=== PATIENT | female | born 1990 | race African-American/Black ===

== ENCOUNTER → 2018-02-13 | Outpatient (CLI) | payer OTHER ==
[2018-02-13 07:46] LABS: HCG, SERUM QUANTITATIVE 59 MIU/ML
== END ==
LOC: M LAB 07:04
DX: Z32.01 Encounter for pregnancy test, result positive (principal)
CPT/HCPCS: 84702

== ENCOUNTER → 2018-02-16 | Outpatient (CLI) | payer OTHER ==
[2018-02-16 13:16] LABS: HCG, SERUM QUANTITATIVE 212 MIU/ML
== END ==
LOC: M LAB 11:55
DX: Z32.01 Encounter for pregnancy test, result positive (principal); Z3A.00 Weeks of gestation of pregnancy not specified
CPT/HCPCS: 84443

== ENCOUNTER 2018-03-13 12:22 | Day surgery (SDC) | payer OTHER ==
[2018-03-13 12:52] LABS: MEAN CORPUSCULAR HEMOGLOBIN 27.7 pg (27.0-33.0); MEAN CORPUSCULAR HGB CONC 32.6 g/dl (32.0-36.5); MEAN CORPUSCULAR VOLUME 85.1 fl (80.0-96.0); PLATELET COUNT, AUTOMATED 280 10^3/uL (150-450); RED BLOOD COUNT 5.05 10^6/uL (4.00-5.40); RED CELL DISTRIBUTION WIDTH 13.7 % (11.5-14.5); WHITE BLOOD COUNT 5.7 10^3/uL (4.0-10.0)
[2018-03-13] MEDS ORDERED: ceFAZolin 1GM INJ (J0690 PER 500MG) As Ordered (13:08)
[2018-03-13 13:23] LABS: ANION GAP 7 MEQ/L (8-16); BLOOD UREA NITROGEN 12 MG/DL (7-18); CALCIUM LEVEL 8.7 MG/DL (8.5-10.1); CARBON DIOXIDE LEVEL 24 MEQ/L (21-32); CHLORIDE LEVEL 107 MEQ/L (98-107); CREATININE FOR GFR 1.01 MG/DL (0.55-1.30); GLOMERULAR FILTRATION RATE > 60.0 (>60); GLUCOSE, FASTING 89 MG/DL (70-100); HCG, SERUM QUANTITATIVE 2442 MIU/ML; POTASSIUM SERUM 4.6 MEQ/L (3.5-5.1); SODIUM LEVEL 138 MEQ/L (136-145)
[2018-03-13] MEDS ORDERED: SODIUM CHLORIDE 0.9% 1000 ML IV (14:00)
[2018-03-13] MEDS ORDERED: ACETAMINOPHEN 325 MG TAB As Ordered (14:34)
[2018-03-13] MEDS: ACETAMINOPHEN TAB 650MG DOSE (2X325MG) PO (14:40)
[2018-03-13] MEDS ORDERED: LR 1,000 ML IV ×2 (14:45→15:45)
[2018-03-13] MEDS: ceFAZolin SOD 1 GM in D5W MINI-BAG PLUS 50 ML IV (14:50)
[2018-03-13] MEDS ORDERED: PROPOFOL 200 MG/20 ML VIAL As Ordered (14:55)
[2018-03-13] MEDS ORDERED: LIDOCAINE 2% INJ 100 MG/5 ML SDV (FOR ANES.) As Ordered (14:55)
[2018-03-13] MEDS ORDERED: fentaNYL 100 MCG/2 ML INJECTION (J3010) As Ordered (14:55)
[2018-03-13] MEDS ORDERED: MIDAZOLAM INJ 2 MG/2 ML VIAL (J2250) As Ordered (14:55)
[2018-03-13] MEDS ORDERED: dexameTHASONE 4 MG/ML 1ML VIAL (J1100) As Ordered ×2 (14:56)
[2018-03-13] MEDS: ACETAMINOPHEN 650 MG SUPP As Ordered (14:57)
[2018-03-13] MEDS ORDERED: NS 1,000 ML IV (15:00)
[2018-03-13] MEDS ORDERED: ONDANSETRON 4MG/2ML VIAL (J2405) As Ordered (15:02)
[2018-03-13] MEDS ORDERED: KETOROLAC 60 MG/2 ML VIAL (J1885) As Ordered (15:02)
[2018-03-13] MEDS ORDERED: fentaNYL 100 MCG/2 ML INJECTION (J3010) IV (15:45)
[2018-03-13] MEDS ORDERED: METOCLOPRAMIDE INJ 10MG/2ML VIAL (J2765) IV (15:45)
[2018-03-13] MEDS ORDERED: ONDANSETRON 4MG/2ML VIAL (J2405) IV (15:45)
[2018-03-13] MEDS ORDERED: KETOROLAC 30 MG/ML VIAL (J1885) IV (21:00)
== END 2018-03-13 17:07 | disposition home or self-care (01) ==
LOC: M SDC 17:07
DX: O02.1 Missed abortion (principal)
CPT/HCPCS: 59820

== ENCOUNTER 2018-03-18 16:30 | Day surgery (SDC) | payer OTHER ==
[2018-03-18] MEDS: MORPHINE 4 MG/ML 1ML VIAL/SYRINGE (J2270) IV ×3 (17:05→20:09)
[2018-03-18] MEDS: ONDANSETRON 4MG/2ML VIAL (J2405) IV (17:05)
[2018-03-18] MEDS: NS 1,000 ML IV (17:06)
[2018-03-18 17:22] LABS: BASO # 0.1 10^3/uL (0.0-0.2); BASO % 0.8 % (0.0-1.0); EOS # 0.7 10^3/uL (0.0-0.50); EOS % 9.1 % (0.0-3.0); HEMATOCRIT 42.8 % (36.0-47.0); HEMOGLOBIN 14.2 g/dl (12.0-15.5); IMMATURE GRANULOCYTE % 0.3 % (0-3.0); LYMPH # 2.8 10^3/uL (1.5-6.5); LYMPH % 39.4 % (24.0-44.0); MEAN CORPUSCULAR HEMOGLOBIN 27.7 pg (27.0-33.0); MEAN CORPUSCULAR HGB CONC 33.2 g/dl (32.0-36.5); MEAN CORPUSCULAR VOLUME 83.4 fl (80.0-96.0); MONO # 0.4 10^3/uL (0.0-0.8); MONO % 5.3 % (0.0-5.0); NEUTROPHILS # 3.2 10^3/uL (1.8-7.7); NEUTROPHILS % 45.1 % (36.0-66.0); PLATELET COUNT, AUTOMATED 303 10^3/uL (150-450); RED BLOOD COUNT 5.13 10^6/uL (4.00-5.40); WHITE BLOOD COUNT 7.1 10^3/uL (4.0-10.0)
[2018-03-18 17:30] LABS: CONTROL LINE HCG INT CTR LINE PRESENT; HCG, SERUM QUALITATIVE POSITIVE (NEGATIVE)
[2018-03-18 17:38] LABS: INR 1.07; PROTHROMBIN TIME 14.1 SECONDS (12.1-14.4)
[2018-03-18 17:39] LABS: LACTIC ACID SEPSIS PROTOCOL 1.6 MMOL/L (0.4-2.0)
[2018-03-18 17:39] LABS: PARTIAL THROMBOPLASTIN TIME 27.9 SECONDS (25.4-37.6)
[2018-03-18 17:42] LABS: ALBUMIN 3.5 GM/DL (3.2-5.2); ALBUMIN/GLOBULIN RATIO 0.78 (1.00-1.93); ALKALINE PHOSPHATASE 71 U/L (45-117); ALT/SGPT 18 U/L (12-78); ANION GAP 10 MEQ/L (8-16); AST/SGOT 13 U/L (7-37); BILIRUBIN,DIRECT 0.1 MG/DL (0.0-0.2); BILIRUBIN,TOTAL 0.2 MG/DL (0.2-1.0); BLOOD UREA NITROGEN 11 MG/DL (7-18); CALCIUM LEVEL 9.5 MG/DL (8.5-10.1); CARBON DIOXIDE LEVEL 25 MEQ/L (21-32); CHLORIDE LEVEL 104 MEQ/L (98-107); CREATININE FOR GFR 0.91 MG/DL (0.55-1.30); GLOMERULAR FILTRATION RATE > 60.0 (>60); GLUCOSE, FASTING 94 MG/DL (70-100); LIPASE 82 U/L (73-393); SODIUM LEVEL 139 MEQ/L (136-145)
[2018-03-18 17:56] LABS: HCG, SERUM QUANTITATIVE 126 MIU/ML
[2018-03-18] MEDS ORDERED: MORPHINE 4 MG/ML 1ML VIAL/SYRINGE (J2270) As Ordered (20:04)
[2018-03-18] MEDS: DOXYCYCLINE HYCLATE 100 MG TAB PO (20:40)
[2018-03-18] MEDS ORDERED: DOXYCYCLINE HYCLATE 100 MG TAB As Ordered (20:47)
[2018-03-18] MEDS: LR 1,000 ML IV (20:57)
[2018-03-18] MEDS ORDERED: LIDOCAINE 1% MDV 20ML VIAL As Ordered (21:04)
[2018-03-18 21:20] LABS: KETONE, URINE AUTO RFX NEGATIVE (NEGATIVE); NITRITE, URINE AUTO RFX NEGATIVE (NEGATIVE); RBC, URINE AUTO RFX 97 /HPF (0-3); SPECIFIC GRAVITY UR AUTO RFX 1.005 (1.002-1.035); SQUAM EPITHELIAL CELL UR AURFX 1 /HPF (0-6); WBC, URINE AUTO RFX 2 /HPF (0-3)
[2018-03-18 21:37] LABS: LEUKOCYTE ESTERASE UR AUTO RFX TRACE (NEGATIVE)
[2018-03-18] MEDS ORDERED: fentaNYL 100 MCG/2 ML INJECTION (J3010) As Ordered (22:31)
[2018-03-18] MEDS ORDERED: dexameTHASONE 4 MG/ML 1ML VIAL (J1100) As Ordered (22:31)
[2018-03-18] MEDS ORDERED: LIDOCAINE 2% INJ 100 MG/5 ML SDV (FOR ANES.) As Ordered (22:31)
[2018-03-18] MEDS ORDERED: MIDAZOLAM INJ 2 MG/2 ML VIAL (J2250) As Ordered (22:31)
[2018-03-18] MEDS ORDERED: ONDANSETRON 4MG/2ML VIAL (J2405) As Ordered (22:31)
[2018-03-18] MEDS ORDERED: KETOROLAC 60 MG/2 ML VIAL (J1885) As Ordered (22:31)
[2018-03-18] MEDS ORDERED: PROPOFOL 200 MG/20 ML VIAL As Ordered (22:31)
[2018-03-18] MEDS: SILVER NITRATE APPLICATOR As Ordered (22:51)
== END 2018-03-18 23:59 | disposition home or self-care (01) ==
LOC: M SDC 23:59 → M ED 16:30 → M SDC 19:22
DX: O73.1 Retained portions of placenta and membranes, without hemorrhage (principal)
CPT/HCPCS: 59820

== ENCOUNTER 2018-08-16 20:27 | Emergency (ER) | payer OTHER ==
[~2018-08-16] VITALS: Ht 175.3 cm; Wt 68.2 kg
[~2018-08-16 20:27] MED LIST: ACET30TAB PO; ACETAMINOPHEN-COD PO
[2018-08-16] MEDS ORDERED: PROPARACAINE 0.5% OPHTH SOL 15ML As Ordered ONE (20:42)
[2018-08-16] MEDS ORDERED: FLUORESCEIN OPHTH 1 MG STRIP As Ordered ONE (20:42)
[2018-08-16] MEDS ORDERED: TETRACAINE 0.5% OPHTH SOLN 4ML OU ONE (21:15)
[2018-08-16] MEDS ORDERED: FLUORESCEIN OPHTH 1 MG STRIP OU ONE (21:15)
[2018-08-16] MEDS ORDERED: CIPR0.3S OD (21:37)
[2018-08-16] MEDS ORDERED: [UNRECOGNIZED DRUG - CODE] OP (21:39)
[2018-08-16] MEDS ORDERED: CIPROFLOXACIN 0.3% OPHTH SOLN 2.5ML OD ONE (21:45)
[2018-08-16 21:46] VITALS: BP 122/68
== END 2018-08-16 22:55 | disposition home or self-care (01) ==
LOC: M ED 20:27
DX: S05.01XA Injury of conjunctiva and corneal abrasion without foreign body, right eye, initial encounter (principal); W22.8XXA Striking against or struck by other objects, initial encounter; Y92.838 Other recreation area as the place of occurrence of the external cause; Y93.23 Activity, snow (alpine) (downhill) skiing, snowboarding, sledding, tobogganing and snow tubing

== ENCOUNTER → 2018-12-23 | Outpatient (CLI) | payer OTHER ==
[~2018-12-23] MED LIST changes: +ACET-716 PO; -ACET30TAB PO; +CIPR0.3S OD; +[UNRECOGNIZED DRUG - CODE] OP
[2018-12-23 11:48] LABS: THYROID STIMULATING HORMONE 1.59 uIU/ML (0.358-3.740)
== END ==
LOC: M LAB 10:57
PROVIDERS: ATTEND Obstetrics & Gynecology Reproductive Endocrinology
DX: Z32.00 Encounter for pregnancy test, result unknown (principal)

== ENCOUNTER → 2018-12-25 | Outpatient (CLI) | payer OTHER ==
[2018-12-25 09:16] LABS: THYROID STIMULATING HORMONE 2.3 uIU/ML (0.358-3.740)
== END ==
LOC: M LAB 08:25
PROVIDERS: ATTEND Obstetrics & Gynecology Reproductive Endocrinology
DX: Z32.01 Encounter for pregnancy test, result positive (principal)

== ENCOUNTER 2019-01-19 10:52 | Emergency (ER) | payer OTHER ==
[~2019-01-19] VITALS: Ht 188 cm; Wt 68.2 kg
[2019-01-19 11:46] LABS: BASO # 0.1 10^3/uL (0.0-0.2); BASO % 1.3 % (0.0-1.0); EOS # 0.5 10^3/uL (0.0-0.50); EOS % 7.3 % (0.0-3.0); HEMATOCRIT 40.8 % (36.0-47.0); HEMOGLOBIN 13.3 g/dl (12.0-15.5); LYMPH # 2.1 10^3/uL (1.5-4.5); LYMPH % 33.9 % (24.0-44.0); MEAN CORPUSCULAR HEMOGLOBIN 27.5 pg (27.0-33.0); MEAN CORPUSCULAR HGB CONC 32.6 g/dl (32.0-36.5); MEAN CORPUSCULAR VOLUME 84.5 fl (80.0-96.0); MONO # 0.5 10^3/uL (0.0-0.8); MONO % 7.8 % (0.0-5.0); NEUTROPHILS % 49.7 % (36.0-66.0); PLATELET COUNT, AUTOMATED 262 10^3/uL (150-450); RED BLOOD COUNT 4.83 10^6/uL (4.00-5.40); WHITE BLOOD COUNT 6.1 10^3/uL (4.0-10.0)
--- NOTE | 2019-01-19 12:42 | REP ---
First trimester obstetric ultrasound for vaginal bleeding, stat request: The studies performed with transabdominal imaging. The bladder is adequately distended. There is an intrauterine gestational sac with a pole. The heart rate is 155 beats per minute. The pole crown-rump length is 1.5 cm. This corresponds to a gestational age of 7 weeks 6 days. The COREEN is 09/01/2019. Gestational age by LMP is 8 weeks 5 days/COREEN 08/26/2019. The there is a normal size yolk sac measuring up to 3 ml in diameter. There is a subchorionic hematoma measuring 2.1 x 1.7 x 2.2 cm. There is a subserosal fibroid in the anterior myometrium of the uterine fundus measuring 2.1 x 1.3 by the 1.9 cm. The adnexa and cul-de-sac are unremarkable. Impression: Viable 5-mvye-2-day intrauterine gestation. There is a subchorionic hematoma as described. There is a uterine fundal fibroid as described. Electronically Signed by Ye Frost MD 01/19/2019 12:33 P
[2019-01-19 12:48] LABS: BLOOD UREA NITROGEN 9 MG/DL (7-18); CARBON DIOXIDE LEVEL 27 MEQ/L (21-32); CHLORIDE LEVEL 106 MEQ/L (98-107); CREATININE FOR GFR 0.82 MG/DL (0.55-1.30); GLOMERULAR FILTRATION RATE > 60.0 (>60); GLUCOSE, FASTING 61 MG/DL (70-100); HCG, SERUM QUANTITATIVE 153690 MIU/ML; POTASSIUM SERUM 4.1 MEQ/L (3.5-5.1); SODIUM LEVEL 137 MEQ/L (136-145)
[2019-01-19 13:34] VITALS: BP 111/63
[2019-01-19] MEDS ORDERED: KEFL500C17 PO (13:39)
== END 2019-01-19 13:54 | disposition home or self-care (01) ==
LOC: M ED 10:52
DX: O20.8 Other hemorrhage in early pregnancy (principal); O34.10 Maternal care for benign tumor of corpus uteri, unspecified trimester; D25.2 Subserosal leiomyoma of uterus; R82.71 Bacteriuria; Z3A.01 Less than 8 weeks gestation of pregnancy

== ENCOUNTER 2019-05-13 09:24 | Outpatient (CLI) | payer OTHER ==
[~2019-05-13] VITALS: Ht 157.5 cm; Wt 79.6 kg
[~2019-05-13 09:24] MED LIST changes: +KEFL500C17 PO
[2019-05-13 09:43] VITALS: BP 119/59
[2019-05-13] MEDS ORDERED: APAP325T4 PO (09:50)
[2019-05-13] MEDS ORDERED: PRENTAB9 PO (09:50)
[2019-05-13] MEDS ORDERED: FIORICET TAB PO ONE (10:15)
[2019-05-13] MEDS ORDERED: ONDANSETRON 4MG/2ML VIAL (J2405) IV ONE (10:15)
[2019-05-13] MEDS ORDERED: LR 1,000 ML IV ONE (10:15)
[2019-05-13 10:59] LABS: APPEARANCE, URINE CLEAR (CLEAR); BACTERIA, URINE AUTO NEGATIVE (NEGATIVE); BILIRUBIN, URINE AUTO NEGATIVE (NEGATIVE); BLOOD, URINE BLOOD NEGATIVE (NEGATIVE); COLOR, URINE YELLOW (YELLOW); GLUCOSE, URINE (UA) AUTO NEGATIVE (NEGATIVE); KETONE, URINE AUTO TRACE mg/dL (NEGATIVE); LEUKOCYTE ESTERASE, URINE AUTO NEGATIVE (NEGATIVE); MUCUS, URINE SMALL (NEGATIVE); NITRITE, URINE AUTO NEGATIVE (NEGATIVE); PROTEIN, URINE AUTO NEGATIVE (NEGATIVE); RBC, URINE AUTO 0 /HPF (0-3); SPECIFIC GRAVITY URINE AUTO 1.025 (1.002-1.035); SQUAMOUS EPITHELIAL CELL UR AU 1 /HPF (0-6); UROBILINOGEN, URINE AUTO 0.2 mg/dL (0.0-2.0); WBC, URINE AUTO 0 /HPF (0-3)
[2019-05-13] MEDS ORDERED: LR 1,000 ML IV SCH (11:30)
[2019-05-13 11:47] VITALS: BP 137/63
[2019-05-13] MEDS ORDERED: PROMETHAZINE INJ 25 MG/ML VIAL (J2550) IV ONE (13:00)
[2019-05-13 13:05] VITALS: BP 115/62
[2019-05-13 15:13] VITALS: BP 103/56
[2019-05-13 17:31] VITALS: BP 103/51
== END 2019-05-13 17:45 | disposition home or self-care (01) ==
LOC: M LDO 09:24
PROVIDERS: ATTEND Advanced Practice Midwife
DX: O26.893 Other specified pregnancy related conditions, third trimester (principal); R51 Headache; O21.1 Hyperemesis gravidarum with metabolic disturbance; Z3A.23 23 weeks gestation of pregnancy
CPT/HCPCS: 81001; 96361; 96374; 96375; G0378; G0463; J2405

== ENCOUNTER 2019-09-02 12:29 | Outpatient (CLI) | payer OTHER ==
[~2019-09-02] VITALS: Ht 157.5 cm; Wt 87.5 kg
[~2019-09-02 12:29] MED LIST changes: +APAP325T4 PO; +PRENTAB9 PO
[2019-09-02] MEDS ORDERED: FERR325T3 PO (12:41)
[2019-09-02 12:51] VITALS: BP 117/68
--- NOTE | 2019-09-02 13:35 | IPNPDOC ---
Text Note Date of Service The patient was seen on 09/02/19. NOTE Patient is at 39.6wks by IVF dating. C/o contractions for 1.5hrs q5min. They slowed down and weakened upon arrival. Now she has cramps only. No loss of fluid or bleeding. Good movement. FHT: Category 1, 130s, reactive, no decels. contractions irregular q 6-10minutes. SVE 1/50/-2. Fetus reassuring. Patient not in labor and no rupture of membranes. Patient given labor p recautions, rupture of membranes precautions and kick counts. She has a follow up appt on 09/07/2019. VS,Fishbone, I+O VS, Fishbone, I+O Vital Signs Date Time Temp Pulse Resp B/P (MAP) Pulse Ox O2 Delivery O2 Flow Rate FiO2 09/02/19 12:51 97.2 83 18 117/68 (84) Yessy Frost MD Sep 02, 2019 13:35
== END 2019-09-02 13:37 | disposition home or self-care (01) ==
LOC: M LDO 12:29
PROVIDERS: ATTEND Obstetrics & Gynecology
DX: O47.1 False labor at or after 37 completed weeks of gestation (principal); Z3A.39 39 weeks gestation of pregnancy
CPT/HCPCS: 59025; G0378; G0463

== ENCOUNTER 2019-09-09 01:36 | Inpatient (IN) | payer OTHER ==
[~2019-09-09] VITALS: Ht 157.5 cm; Wt 86.5 kg
[2019-09-09] VITALS (63 sets, daily range): BP systolic 93–136; BP diastolic 51–83
[~2019-09-09 01:36] MED LIST changes: +FERR325T3 PO
[2019-09-09] MEDS ORDERED: LR 1,000 ML IV SCH (02:13)
[2019-09-09] MEDS ORDERED: LACTATED RINGER'S 1000 ML IV STA (02:13)
[2019-09-09] MEDS ORDERED: BUTORPHANOL 2 MG/ML INJ (J0595) IV ONE (02:45)
[2019-09-09] MEDS ORDERED: PROMETHAZINE INJ 25 MG/ML VIAL (J2550) IV ONE (02:45)
[2019-09-09 02:53] LABS: HEMATOCRIT 41.4 % (36.0-47.0); HEMOGLOBIN 12.4 g/dl (12.0-15.5); MEAN CORPUSCULAR HEMOGLOBIN 23.8 pg (27.0-33.0); MEAN CORPUSCULAR VOLUME 79.3 fl (80.0-96.0); PLATELET COUNT, AUTOMATED 230 10^3/uL (150-450); RED BLOOD COUNT 5.22 10^6/uL (4.00-5.40); WHITE BLOOD COUNT 9.6 10^3/uL (4.0-10.0)
[2019-09-09] MEDS ORDERED: FENTANYL 2MCG/ML ROPIVACAINE 0.2% IN 0.9% NACL 100ML IVBAG As Ordered ONE ×2 (03:00→13:19)
[2019-09-09] MEDS ORDERED: LACTATED RINGER'S 1000 ML IV ONE (03:30)
[2019-09-09] MEDS: FENTANYL/ROPIVACAINE/NACL BAG 100 ML EPIDURAL SCH ×2 (03:59→13:24)
[2019-09-09] MEDS ORDERED: NALOXONE INJ 0.4 MG/1 ML VIAL (J2310) IV PRN ×3 (04:45→19:09)
[2019-09-09] MEDS ORDERED: EPIDURAL/PCA KEYS XX PRN (04:45)
[2019-09-09] MEDS ORDERED: EPIDURAL COMMENT XX SCH (04:45)
[2019-09-09] MEDS ORDERED: diphenhydrAMINE INJ 50MG/ML VIAL (J1200) IV PRN ×2 (04:45→19:09)
[2019-09-09] MEDS ORDERED: LACTATED RINGER'S 1000 ML IV PRN (04:45)
[2019-09-09] MEDS ORDERED: ONDANSETRON 4MG/2ML VIAL (J2405) IV PRN ×3 (04:45→20:30)
[2019-09-09] MEDS ORDERED: REFRIGERATOR IV KEYS XX PRN (04:45)
[2019-09-09] MEDS: ePHEDrine SULFATE 25 MG/5 ML(5MG/ML) SYRINGE IV PRN ×3 (06:08→06:21)
--- NOTE | 2019-09-09 08:14 | IPNPDOC ---
Text Note Date of Service The patient was seen on 09/09/19. NOTE patient is a 29 yo G1 @ 40+6wks gestation admitted for labor. she SROM around 0530 this AM, germain on her own. she has epidural for pain management. vitals: normal nad abd: gravid, soft, nt, cephalic by da fht: 150/mod mary/no accel/no decel toco: ctx q 3-5mins CE: 6//-2 (nursing exam) a/p patient in active labor. continue to monitor. recheck in 2-4hrs. start pit for augmentation as needed. Patsy, VS,[place], I+O VS, Fishbone, I+O Laboratory Tests 09/09/19 02:47 Vital Signs Date Time Temp Pulse Resp B/P (MAP) Pulse Ox O2 Delivery O2 Flow Rate FiO2 09/09/19 07:36 105 16 113/58 (76) 09/09/19 04:00 97.5 MEMO KEARNS DO Sep 09, 2019 08:14
[2019-09-09] MEDS ORDERED: OXYTOCIN DRIP 30 UNITS in IV 1 EA IV SCH ×2 (08:30→19:39)
--- NOTE | 2019-09-09 12:58 | HPE ---
DATE OF ADMISSION: 09/09/2019 29-year-old, 3, para 0, abortio 2, last menstrual period (LMP) 11/20/2018, expected date of confinement (EDC) 08/30/2019, at 40 and 6 weeks of gestation with a history of spontaneous labor, an in vitro fertilization (IVF) embryo transfer 12/14/2018 at 3-day embryo. Risk factors are IVF transfer, depression, anemia and BMI of 29.6. PAST HISTORY: Spontaneous 2017 with dilation and curettage. 2015 - spontaneous , complete. LABS: O+, HIV negative, hepatitis negative, RPR negative, rubella immune, varicella immune. Pap normal. Urine positive. 1-hour glucose 120. GBS negative/ EXAMINATION: Distressed. Symphysis fundus height is 40, vertex, occiput anterior (OA), 4 cm, 70% effaced, bulging membranes, -3 station. Hemoglobin 12.4, hematocrit 41.4, platelets 230. Blood pressure 126/75, respirations 18, pulse 83, temperature 97.7. The rest examination is unremarkable. Normocephalic, atraumatic. Neck: Full range of motion. Pupils equal and reactive to light. Distal pulses symmetric. No evidence of deep vein thrombosis (DVT), pulmonary embolism (PE) or superficial phlebitis. Chest is clear bilaterally to bases. No wheezes or rhonchi. No CVA tenderness. Abdomen: Soft. Four quadrant bowel sounds are noted. Vertex presenting. No rashes, lesions or pruritus. No arthralgia or myalgia. No complaint of joint pain. No complaint of cough, wheeze, shortness breath, or dyspnea on exertion. No bruising. No bleeding. Neuro complete. No incontinency or frequency. No nausea, vomiting, diarrhea or constipation. No diabetic issues. No heat or cold issues. She has no CATALYST IMPREGNATOR issues. No STDs in the past. PAST MEDICAL: Unremarkable. SURGICAL: Noncontributory. FAMILY HISTORY: Noncontributory. She does not smoke, drink or abuse drugs. She is to a soldier. No domestic violence. We discussed consent for vaginal delivery which is through the vagina with possible assistance of forceps or vacuum devices if needed, maternal or indications, forceps or vacuum devices that can assist with vaginal delivery when normal pushing efforts cannot achieve delivery on their own, or when delivery is needed in an emergency for baby's well being, medications that will be required to induce or augment labor in order achieve vaginal delivery, and episiotomy may be required to help baby deliver vaginally. She may also require repair of laceration or tear to the vagina or vulva that occurred during delivery. In some cases emergencies arise and emergency section is necessary for maternal or indications. They happen so quickly that consent forms cannot be signed, but the provider will discuss with you the reasons for section of delivery through an abdominal incision where he may proceed with surgery as it is safer for the mom and the baby than for continuing labor and also performed for only clinical indications. The risks of vaginal delivery include but are not limited to, bleeding, infection, injury to the vagina or pelvic structures, injury to baby, damage to the uterus, reaction to anesthesia, or uterine rupture. Risk of hysterectomy for life-threatening bleeding issues or . Medications used to augment or induce labor may increase the risk of infection, uterine tachysystole, uterine rupture, bleeding heart rate abnormalities. May need emergency section or possible hysterectomy for hemorrhage. Additional risks for use of forceps or vacuum include scratches, hematomas to the head or intracranial bleed. The patient expressed understanding of the same and verbalized agreement for the plan of care. All questions were answered.
--- NOTE | 2019-09-09 12:58 | IPNPDOC ---
Text Note Date of Service The patient was seen on 09/09/19. NOTE patient is comfortable with epidural. pit at 4 fht: 145/mod mary/pos accel/no decel toco: ctx 3mins ce: 8-9/90/0 a/p patient is in active labor. continue to titrate pit to effect. recheck in 1-2 hrs. LE, VS,Fishbone, I+O VS, Fishbone, I+O Laboratory Tests 09/09/19 02:47 Vital Signs Date Time Temp Pulse Resp B/P (MAP) Pulse Ox O2 Delivery O2 Flow Rate FiO2 09/09/19 10:11 105 16 105/58 (74) 09/09/19 08:41 98.1 MEMO KEARNS DO Sep 09, 2019 12:58
--- NOTE | 2019-09-09 15:04 | IPNPDOC ---
Text Note Date of Service The patient was seen on 09/09/19. NOTE Patient is comfortable with epidural. pit 8mU vitals: normal nad fht: 150/mod mary/no accel/no decel toco: ctx q 2mins ce: /0, IUPC placed a/p patient in active labor, stalled labor course. IUPC placed for MVU's. Discussed with patient my concern for stalled progress at 8cm. recheck in 2hrs. VS,Fishbone, I+O VS, Fishbone, I+O Laboratory Tests 09/09/19 02:47 Vital Signs Date Time Temp Pulse Resp B/P (MAP) Pulse Ox O2 Delivery O2 Flow Rate FiO2 09/09/19 14:12 99 16 109/59 (76) 09/09/19 08:41 98.1 MEMO KEARNS DO Sep 09, 2019 15:04
--- NOTE | 2019-09-09 17:22 | IPNPDOC ---
Text Note Date of Service The patient was seen on 09/09/19. NOTE patient feeling vaginal pressure. pit: 8mU vitals: normal fht: 155/mod mary/pos accel/no decel IUPC: >200 MVUs ce: /0 a/p patient with adequate MVU, unchanged, arrest of dilation. discussed with patient regarding diagnosis of arrest of dilation. Recommend primary delivery at this time. Discussed risks of section to include infection, bleeding needing blood transfusion, injury to surrounding organs, longer healing process compared to vaginal delivery. patient expresses understanding and desires to proceed with primary delivery. Consent forms celestino. pit off. back to OR once team ready. Patsy, VS,Ant, I+O VS, Hilariae, I+O Laboratory Tests 09/09/19 02:47 Vital Signs Date Time Temp Pulse Resp B/P (MAP) Pulse Ox O2 Delivery O2 Flow Rate FiO2 09/09/19 14:12 99 16 109/59 (76) 09/09/19 08:41 98.1 MEMO KEARNS DO Sep 09, 2019 17:21
[2019-09-09] MEDS ORDERED: BICITRA 30ML SOLN UDC As Ordered ONE (17:40)
[2019-09-09] MEDS ORDERED: OXYTOCIN INJ 10 UNITS/ML VIAL (J2590) As Ordered ONE (17:58)
[2019-09-09] MEDS ORDERED: ceFAZolin SOD 2 GM in IV 1 EA IV ONE (18:00)
[2019-09-09] MEDS ORDERED: AZITHROMYCIN INJ 500 MG, VIAL MATE ADAPTER 1 EACH in D5W 250 ML IV ONE (18:00)
[2019-09-09] MEDS ORDERED: TRANEXAMIC ACID INJection 1,000 MG in D5W 100 ML IV ONE (18:00)
[2019-09-09] MEDS ORDERED: LIDOCAINE 2% W/EPIN INJ 20ML **PRES FREE As Ordered ONE (18:04)
[2019-09-09] MEDS ORDERED: KETOROLAC 60 MG/2 ML VIAL (J1885) As Ordered ONE (18:07)
[2019-09-09] MEDS ORDERED: dexameTHASONE 4 MG/ML 1ML VIAL (J1100) As Ordered ONE (18:07)
[2019-09-09] MEDS ORDERED: ONDANSETRON 4MG/2ML VIAL (J2405) As Ordered ONE (18:07)
[2019-09-09] MEDS ORDERED: MORPHINE PRES-FREE INJ 10 MG/10 ML VIAL (J2274) As Ordered ONE (18:09)
[2019-09-09] MEDS ORDERED: TRANEXAMIC ACID 100 MG/ML 10ML VIAL As Ordered ONE (18:17)
[2019-09-09] MEDS ORDERED: PHENYLephrine HCL 500 MCG/5 ML (100MCG/ML) SYRINGE (J2370) As Ordered ONE ×2 (18:52→19:13)
[2019-09-09] MEDS ORDERED: fentaNYL 100 MCG/2 ML INJECTION (J3010) As Ordered ONE (19:03)
[2019-09-09] MEDS ORDERED: METOCLOPRAMIDE INJ 10MG/2ML VIAL (J2765) IV PRN (19:09)
[2019-09-09] MEDS ORDERED: NALBUPHINE HCL 10 MG/ML AMP (J2300) IV PRN (19:09)
[2019-09-09 19:26] LABS: CORD GAS ABE V -7.4; CORD GAS HCO3 V 20.2 MEQ/L; CORD GAS O2 SAT V 51.7 %; CORD GAS PCO2 V 48.3 mmHg; CORD GAS PH V 7.24 UNITS; CORD GAS PO2 V 25.8 mmHg; CORD GAS SBC V 17.5 MEQ/L; CORD GAS TCO2 V 21.7 MEQ/L
[2019-09-09] MEDS ORDERED: MEASLES,MUMPS,RUBELLA VACCINE INJ (MMR-II) (90707) SC SCH (19:45)
[2019-09-09] MEDS ORDERED: oxyCODONE 5MG TAB PO PRN (19:45)
[2019-09-09] MEDS ORDERED: RHOGAM 300 MCG (1500 IU) INJ (J2790) IM SCH (19:45)
[2019-09-09] MEDS ORDERED: DOCUSATE SODIUM 100 MG CAP PO PRN (19:45)
[2019-09-09] MEDS ORDERED: ACETAMINOPHEN TAB 650MG DOSE (2X325MG) PO PRN (19:45)
--- NOTE | 2019-09-09 19:51 | DNPDOC ---
[facility] Delivery Note Delivery Note DATE OF DELIVERY: 09/09/2019 PREDELIVERY DIAGNOSIS: 39+1/7 weeks' gestation and labor. POST DELIVERY DIAGNOSIS: Delivered. PROCEDURE: 1) primary low transverse section with vacuum assist. SOLE STAINER: Dr. Memo Garner ANESTHESIA: epidural ESTIMATED BLOOD LOSS: 800 mL. FINDINGS: 3780g male infant, Score 8/9. DELIVERY SUMMARY: Primary low transverse delivery. see operative notes for details. MEMO GARNER DO Sep 09, 2019 19:51
[2019-09-09] MEDS ORDERED: NORCO, ANEXSIA 5/325MG TABLET (HYDROcodone/ACETAMINOPHEN) PO PRN (20:30)
[2019-09-09] MEDS ORDERED: fentaNYL 100 MCG/2 ML INJECTION (J3010) IV PRN (20:30)
[2019-09-09] MEDS ORDERED: LR 1,000 ML IV ONE (22:30)
--- NOTE | 2019-09-09 23:08 | POST-OPPD ---
Postoperative Procedure Note Date Of Procedure: Sep 09, 2019 PREOPERATIVE DIAGNOSIS: 1) Arrest of dilation 2) labor at term POSTOPERATIVE DIAGNOSIS: 1) status post primary low transverse delivery with vacuum assist FINDINGS: male , OP, 8/9 PROCEDURE: primary low transverse section with vacuum assist SURGEON: Alma Delia Garner DO CIGAR ROLLER: Justino Pelletier MD ANESTHESIA: Epidural SPECIMENS: none ESTIMATED BLOOD LOSS: 800cc REPLACED: 1900 cc LR DRAINS: 100 urine output COMPLICATIONS: none POSTOPERATIVE CONDITION: stable Detailed description of procedure Indication for procedure: Patient is a @ 39+1wks with arrest of dilation at 8cm. Description of procedure: The risks, benefits, indications and alternatives to the procedure were reviewed with the patient and informed consent was obtained. Labor epidural anesthesia was dosed for surgical analgesic. She was prepped and draped in the normal sterile fashion in the dorsal supine position with a leftward tilt. The abdomen was entered through a pfannenstiel incision. Sharp dissection taken down to fascia layer. Fascia layer entered with sharply and carried lateral and upward bilaterally. Space between fascia and rectus muscle created bluntly and sharply. The rectus muscles and peritoneum bluntly along midline and exposes the gravid uterus. Bladder blade placed. The vesicouterine peritoneum was identified. A Scott uterine incision made sharply. The uterine incision was extended superolaterally. Baby OP. Head delivered through the hysterotomy. There was difficulty delivering head through rectus muscle. Bandage scissors used to partially cut bilateral rectus muscle bellies. Vacuum used with one pull to deliver head. Posterior (right) shoulder delivered followed by anterior shoulder. Body followed with ease. Terminal mec noted. The cord was clamped and cut. The infant was handed off to baby nurse. Pitocin bolus started. Cord blood collected for gas. The cord avulsed. Placenta manually extracted from the uterus. The uterus was exteriorized. The uterus was cleared of all clots and debris. The uterine incision was repaired with a 2 layers of with 0-Chromic in a running locking fashion and imbricating layer with 0-Monocryl. Hysterotomy inspected to be hemostatic. Uterus internalized. Gutters were cleared of clots. Hysterotomy inspected to be hemostatic. The peritoneum, fascia and muscle bellies were inspected and noted to be hemostatic. The peritoneum brought back together midline with 3-0 vicryl. The fascia approximated with 0 vicryl suture in a running fashion. The subcutaneous tissue closed with 3-0 vicryl. The skin was closed with subcuticular 4-0 monocryl. Dressing applied. The vagina was cleared of clots. Sponge laps, needle and instruments count correct x 2. Patient taken to recovery room in stable condition. DO SOM Garner LUAT N. DO Sep 09, 2019 19:54
[2019-09-10] VITALS (10 sets, daily range): BP systolic 100–119; BP diastolic 55–65
[2019-09-10] MEDS: KETOROLAC 30 MG/ML VIAL (J1885) IV SCH ×3 (01:01→13:00)
[2019-09-10] MEDS ORDERED: BICITRA 30ML SOLN UDC PO ONE (06:00)
[2019-09-10 07:19] LABS: HEMATOCRIT 23.4 % (36.0-47.0); MEAN CORPUSCULAR HGB CONC 31.6 g/dl (32.0-36.5); MEAN CORPUSCULAR VOLUME 79.1 fl (80.0-96.0); PLATELET COUNT, AUTOMATED 181 10^3/uL (150-450); RED BLOOD COUNT 2.96 10^6/uL (4.00-5.40); WHITE BLOOD COUNT 16.5 10^3/uL (4.0-10.0)
[2019-09-10 07:20] LABS: HEMOGLOBIN 7.4 g/dl (12.0-15.5)
[2019-09-10] MEDS: FERROUS SULFATE 325MG TAB PO SCH (07:50)
[2019-09-10] MEDS: PRENATAL VITAMINS CHEWABLE TABLET PO SCH (07:50)
--- NOTE | 2019-09-10 09:04 | IPNPDOC ---
Progress Note Date of Service: Sep 10, 2019 Day#: 1 Progress Note SUBJECT: patient is a 29 yo S/P PLTCD for arrest of dilation PPD #1. Patient had nausea overnight. This am improved and is tolerating PO. She has ambulated once to NICU. Pain currently well controlled. Denies dizziness. plans on breast feeding. OBJECTIVE: VITAL SIGNS: Within normal limits, afebrile. Alert and oriented times three. Abdomen: Fundus firm at U-1. Soft, appropriate tender to palpation. Dressing without strike through.. LE: no edema/erythema/tenderness A/P ppd #1, doing well. encourage ambulating and breast pumping. routine care. patient anemic, asymptomatic. will discuss with patient regarding iron infusion. Meds picked up at [facility]. DO Patsy VS, I&O, 24H, [facility] Vital Signs/I&O Vital Signs Date Time Temp Pulse Resp B/P (MAP) Pulse Ox O2 Delivery O2 Flow Rate FiO2 09/10/19 06:36 97.7 84 18 106/55 (72) 97 Room Air I&O- Last 24 Hours up to 6 AM 09/10/19 06:00 Intake Total 3994 ml Output Total 4300 ml Balance -306 ml Laboratory Data 24H LABS Laboratory Tests 2 09/10/19 06:59: Nucleated Red Blood Cells % (auto) 0.0 CBC/BMP Laboratory Tests 09/10/19 06:59 MEMO KEARNS DO Sep 10, 2019 09:04
[2019-09-10] MEDS ORDERED: IRON SUCROSE 100MG 5ML VIAL (J1756 PER 1MG) IV SCH (10:00)
[2019-09-10] MEDS: IRON SUCROSE 500 MG in NS 250 ML OVER 4 HRS IV SCH (12:08)
[2019-09-10] MEDS ORDERED: KETOROLAC 30 MG/ML VIAL (J1885) IV SCH (16:00)
[2019-09-10] MEDS: PERCOCET 5MG/325MG TAB PO PRN (21:59)
[2019-09-10] MEDS: IBUPROFEN 800 MG TAB PO SCH (23:24)
[2019-09-11] VITALS (8 sets, daily range): BP systolic 99–113; BP diastolic 55–64
[2019-09-11] MEDS: PERCOCET 5MG/325MG TAB PO PRN ×2 (04:02→13:26)
--- NOTE | 2019-09-11 07:30 | IPNPDOC ---
Progress Note Date of Service: Sep 11, 2019 Day#: 2 Progress Note SUBJECT: Patient is a 29-year-old status post uncomplicated PLTCS for AOD. POD2. She has been ambulating, voiding spontaneously without issue and tolerating regular diet. Pumping without issue. Reports lochia is decreased. Patient is ambulating well. Decreased pain and tolerable when ambulating. No dizziness with ambulation. Receiving iron infusion. OBJECTIVE: VITAL SIGNS: Within normal limits, afebrile. Alert and oriented times three. Breast without erythema or tenderness Breath sounds clear to auscultation. Heart rate: Regular rate and rhythm, no murmurs, rubs or gallops. Abdomen: Fundus firm at U-2. Soft, NTTP. Dressing clean and dry. Minimal lochia. ASSESSMENT: Patient is a 29-year-old status post uncomplicated PLTCS for AOD. POD2. Doing well. Vitals within normal limits, afebrile, hemodynamically stable with no evidence of infection. PLAN: 1. Possible discharge tomorrow. 2. Tylenol and Motrin and percocet for pain. 3. Encourage pumping and ambulation. 4. Anemia asymptomatic. 5. Routine PP visit in 2 weeks in clinic. 6. Discussed return precautions at length. VS, I&O, 24H, Fishbone Vital Signs/I&O Vital Signs Date Time Temp Pulse Resp B/P (MAP) Pulse Ox O2 Delivery O2 Flow Rate FiO2 09/11/19 06:00 98.9 83 17 108/55 (72) 98 Room Air I&O- Last 24 Hours up to 6 AM 09/11/19 06:00 Intake Total 275 ml Output Total 640 ml Balance -365 ml Yessy Frost MD Sep 11, 2019 07:30
[2019-09-11] MEDS: FERROUS SULFATE 325MG TAB PO SCH (08:37)
[2019-09-11] MEDS: PRENATAL VITAMINS CHEWABLE TABLET PO SCH (08:37)
[2019-09-11] MEDS: IBUPROFEN 800 MG TAB PO SCH ×2 (08:37→18:32)
[2019-09-11] MEDS: ONDANSETRON 4MG/2ML VIAL (J2405) IV SCH ×2 (13:26→19:00)
[2019-09-11] MEDS: IRON SUCROSE 500 MG in NS 250 ML OVER 4 HRS IV SCH (14:07)
[2019-09-12] MEDS: ONDANSETRON 4MG/2ML VIAL (J2405) IV SCH ×2 (01:00→07:00)
[2019-09-12] MEDS: IBUPROFEN 800 MG TAB PO SCH ×2 (01:57→11:02)
[2019-09-12] MEDS: FERROUS SULFATE 325MG TAB PO SCH (11:01)
[2019-09-12] MEDS: PRENATAL VITAMINS CHEWABLE TABLET PO SCH (11:01)
--- NOTE | 2019-09-12 11:29 | IPNPDOC ---
Progress Note Date of Service: Sep 12, 2019 Day#: 3 Progress Note POD 3 SUBJECT: Patient is a 29yo s/p uncomplicated PLTCS for arrest of dilation on 2, doing well on POD 2. She has been ambulating, voiding spontaneously without issue and tolerating regular diet. Pain well controlled. Baby is in the NICU and she is breast feeding without issue. Reports lochia is minimal. No dizziness with ambulation, received iron infusion. Plans to board in NICU with baby. No f/c/n/v/CP/SOB. OBJECTIVE: VITAL SIGNS: Within normal limits, afebrile. Alert and oriented times three. Abdomen: Fundus firm at U-2. Soft, NTTP. Optifoam dressing clean and dry c overing pfannensteil incision. No obvious erythema. Extremities: no pain with palpation of calves, trace edema of BLE Labs: pre-op H/H: 12.4/41.4 post-op H/H: 7.4/23.4 ASSESSMENT: Patient is a 29yo s/p uncomplicated PLTCS for arrest of dilation on 09/09, doing well on POD 3. Vitals within normal limits, afebrile, hemodynamically stable with no evidence of infection. PLAN: 1. Discharge to boarding status in the NICU with 2. Motrin and percocet for pain. 3. Encourage breast feeding and ambulation. 4. Pt instructed to call clinic to make 2 week post-op incision check appt 5. Vaginal rest 6 weeks, no heavy lifting 6. Discussed return precautions at length. Dr. Marce Higgins MD VS, I&O, 24H, Fishbone Vital Signs/I&O Vital Signs Date Time Temp Pulse Resp B/P (MAP) Pulse Ox O2 Delivery O2 Flow Rate FiO2 09/11/ 18:15 98.3 86 20 107/59 (75) 97 Room Air Marce Higgins MD Sep 12, 2019 11:29
[2019-09-12] MEDS ORDERED: PERCOCET PO (11:31)
[2019-09-12] MEDS ORDERED: DOCU100C16 PO (11:31)
[2019-09-12] MEDS ORDERED: IBUP80TA PO (11:31)
--- NOTE | 2019-09-12 11:34 | DS.PDOC ---
Discharge Summary General Date of Admission Sep 09, 2019 at 02:13 Date of Discharge Sep 12, 2019 Attending Physician: MEMO KEARNS DO Discharge Summary PROCEDURES PERFORMED DURING STAY: primary low transverse section ADMITTING DIAGNOSES: 1. Active labor at term DISCHARGE DIAGNOSES: 1. Active labor at term 2. Arrest of dilation 3. Anemia s/p iron transfusion COMPLICATIONS/CHIEF COMPLAINT: Labor Check. HISTORY OF PRESENT ILLNESS/HOSPITAL COURSE: Patient is a 29yo s/p uncomplicated PLTCS for arrest of dilation on 09/09, doing well on POD 3. She has had a benign post-op course. Received iron transfusion for anemia, has had no issues with ambulation. At time of discharge, her vitals are within normal limits, afebrile, hemodynamically stable with no evidence of infection. DISCHARGE MEDICATIONS: Please see below. ALLERGIES: Please see below. PHYSICAL EXAMINATION ON DISCHARGE: VITAL SIGNS: Within normal limits, afebrile. Alert and oriented times three. Abdomen: Fundus firm at U-2. Soft, NTTP. Optifoam dressing clean and dry covering pfannensteil incision. No obvious erythema. Extremities: no pain with palpation of calves, trace edema of BLE LABORATORY DATA: Please see below. pre-op H/H: 12.4/41.4 post-op H/H: 7.4/23.4 ACTIVITY: vaginal rest and no heavy lifting 6 weeks DIET: regular DISCHARGE PLAN/Instructions: 1. Discharge to boarding status in the NICU with 2. Motrin and percocet for pain. 3. Encourage breast feeding and ambulation. 4. Pt instructed to call clinic to make 2 week post-op incision check appt 5. Vaginal rest 6 weeks, no heavy lifting 6. Discussed return precautions at length. 7. Keep incision clean and DRY. Remove optifoam dressing and steri strips in 1 week. DISPOSITION: Home DISCHARGE CONDITION: Stable TIME SPENT ON DISCHARGE: Greater than [address] Marce Higgins MD Vital Signs/I&Os Vital Signs Date Time Temp Pulse Resp B/P (MAP) Pulse Ox O2 Delivery O2 Flow Rate FiO2 09/11/20 18:15 98.3 86 20 107/59 (75) 97 Room Air Discharge Medications Scheduled Ibuprofen (Ibuprofen) 800 Mg Tablet, 800 MG PO Q8H No.137/Iron/Folic Acd ( Vitamin Tablet) 1 Each Tablet, 1 TAB PO DAILY, (Reported) Scheduled PRN Docusate Sodium (Docusate Sodium) 100 Mg Capsule, 100 MG PO QHSP PRN for CON STIPATION Oxycodone/Acetaminophen (Oxycodone-Acetaminophen 5-325) 1 Each Tablet, 1 TAB PO Q4H PRN for MILD/MODERATE PAIN (PS 1-6) Miscellaneous Medications Ferrous Sulfate (Ferrous Sulfate) 325 Mg Tablet., 325 MG PO, (Reported) Allergies Coded Allergies: No Known Allergies (Unverified , 09/09/19) Marce Higgins MD Sep 12, 2019 11:34
== END 2019-09-12 12:20 | disposition home or self-care (01) | DRG 773 ==
LOC: M LDO 01:36 → M LDI 02:13 → M OBS 21:20
PROVIDERS: ADMIT Obstetrics & Gynecology; ATTEND Obstetrics & Gynecology
PROC: 10D00Z1 Extraction of Products of Conception, Low, Open Approach (ICD-10-PCS; principal; 2019-09-09 18:53)
DX: O99.02 Anemia complicating childbirth (principal); D64.9 Anemia, unspecified; Z3A.40 40 weeks gestation of pregnancy; O48.0 Post-term pregnancy; O99.344 Other mental disorders complicating childbirth; O69.89X0 Labor and delivery complicated by other cord complications, not applicable or unspecified; F32.9 Major depressive disorder, single episode, unspecified; O62.0 Primary inadequate contractions; Z37.0 Single live birth

== ENCOUNTER 2019-09-15 12:21 | Emergency (ER) | payer OTHER ==
[~2019-09-15] VITALS: Ht 154.9 cm; Wt 82.5 kg
[~2019-09-15 12:21] MED LIST changes: +DOCU100C16 PO; +IBUP80TA PO; +PERCOCET PO
--- NOTE | 2019-09-15 15:11 | REP ---
Right upper extremity duplex venous ultrasound: History: Swollen right arm. Rule out venous thrombosis. Findings: The right internal jugular, axillary, brachial, basilic, and cephalic veins are anechoic and compressible in the left upper extremity. Color flow imaging is homogeneous. Spectral Doppler interrogation is unremarkable. There is no evidence of right upper extremity venous thrombosis. Incidental note is made of an 8 mm cyst in the right thyroid lobe. Impression: Negative right upper extremity duplex venous ultrasound. No evidence of venous thrombosis. 8 mm cyst right thyroid noted incidentally. Electronically Signed by Guilherme Hall MD 09/15/2019 03:03 P
--- NOTE | 2019-09-15 15:12 | REP ---
Clinical: Pain with erythema and swelling. Technique: A directed ultrasound examination of the right forearm. Findings: Ultrasound examination demonstrates subcutaneous edema as well as thrombosed cephalic vein. No drainable collection/abscess. Impression: Subcutaneous edema. Cephalic vein thrombosis. No abscess. Electronically Signed by Nick Parr MD 09/15/2019 03:03 P
[2019-09-15 16:30] VITALS: BP 137/84
--- NOTE | 2019-09-16 07:12 | ED PDOC ---
Post-Departure Follow-Up radiology rpeort faxed to [facility] Calli Tarango MD Sep 16, 2019 07:12
== END 2019-09-15 16:37 | disposition home or self-care (01) ==
LOC: M ED 12:21
DX: I82.611 Acute embolism and thrombosis of superficial veins of right upper extremity (principal); D64.9 Anemia, unspecified